=== PATIENT | female | born 1995 | race Hispanic/Latino ===

== ENCOUNTER 2024-09-16 19:50 | Emergency (ER) | payer SELFPAY ==
[~2024-09-16] VITALS: Ht 162.6 cm; Wt 119.3 kg
--- NOTE | 2024-09-16 20:18 | NUR ---
TRANSFERED CARE TO [facility] AT THIS TIME
--- NOTE | 2024-09-16 20:49 | ERN ---
General Chief Complaint: Toe Pain/Injury Stated Complaint: INFECTED TOE Time Seen by MD: 20:32 Source: patient History of Present Illness Initial Comments Patient is an obese 29-year-old female with no past medical history who comes in with a an infected left 2nd toe. She said she had an ingrown toenail there which she tried to dig out and then a few days later she noted it started get red and swollen. She squeezed it real hard and was able to express some purulent drainage. But since then it has increased in pain swelling and discoloration. The pain is radiating up her left calf and left thigh. She comes in for antibiotics. Allergies: Coded Allergies: No Known Allergies (Unverified Allergy, Unknown, 09/16/24) Past Medical History Past Medical History: No Pertinent History Medical History Other: obese Past Surgical History: Other Surgical History Other: RT OVARY Female( History) LMP: August 20, 2024 ROS Dictation Aside from HPI review of systems is negative. Patient states no chills no fevers. Physical Exam Extremities Comment Patient's left 2nd toe has severe venous discoloration in the distal phalanx. The toe itself is warm and extremely tender. The rest of the foot appears normal. MDM Most likely patient has an abscess in her toe. I will give her some IM antibiotics. I will also numb the toe with some lidocaine and try and drain an abscess. Please see procedure note for details. I was unable to release an abscess from the patient's distal phalanx. Although I do think creating the incision to relieve tension in the patient's tissues and with the antibiotics the infection will clear up nicely. I discharge the patient home with a prescription for Keflex. ED Course Orders Procedure Category Date Status Time Ceftriaxone 2gm Vial PHA 09/16/24 Complete (Rocephin 2gm Inj) 21:00 Lidocaine 1%-Epi PHA 09/16/24 Complete 1:100,000 (Lidocaine 21:00 Laceration Tray Set CPOE 09/16/24 Transmitted Up (Er) 20:32 Current Medications Medications (Trade) Dose Ordered Sig/Mica Route PRN Reason Start Time Stop Time Status Last Admin Dose Admin Ceftriaxone Sodium (Rocephin 2gm Inj) 2 gm ONCE ONCE IVPB 09/16/24 21:00 09/16/24 21:01 DC 09/16/24 21:15 Lidocaine/ Epinephrine (Lidocaine 1%-Epi 1:100,000) 20 ml ONCE ONCE IJ 09/16/24 21:00 09/16/24 21:01 DC 09/16/24 21:15 Vital Signs Date Time Temp Pulse Resp B/P (MAP) Pulse Ox O2 Delivery O2 Flow Rate FiO2 09/16/24 19:57 98.1 93 20 149/93 98 Room Air* 0 21 09/16/24 19:51 97.0 93 20 149/93 98 Room Air Procedure Dictation Patient's left 2nd toe was numbed with lidocaine doing injections at the base of the toe circumferentially. A small incision was made medially on the distal phalanx of the 2nd toe. There was no purulent drainage. The pulp of the distal phalanx was opened with a tele clamp and again no purulent drainage. Bleeding was stopped with pressure. The wound was cleaned with wound cleanser. The patient's nail and a 2nd toe was loose and I cut off the portion that was loose. The incision was left open. Incision and Drainage Incision and Drainage : Blade Size: 15 I & D Procedure: no sterile drapes applied DX & DISP Disposition: Discharge Departure Impression: Primary Impression: Infected abrasion of toe of left foot Condition: Stable Scripts Cephalexin Monohydrate (Keflex) 500 Mg Cap 500 MG PO QID for 7 Days, #28 CAP Prov: DEANDRE TOTH MD 09/16/24 Additional Instructions: Please return to the emergency room if your toe does not improve in the next few days. The incision and drainage and the antibiotics you received should clean of the infection. I would avoid soaking the toe in any water for the next several days. No swimming no saunas no soaking baths. It is okay to have water running over it so showers are okay. DEANDRE TOTH MD Sep 16, 2024 20:49
[2024-09-16] MEDS: cefTRIAXone 2GM VIAL IVPB ONE (21:15)
[2024-09-16] MEDS: LIDOCAINE 1%-EPI 1:100,000 20 ML VIAL IJ ONE (21:15)
[2024-09-16] MEDS ORDERED: CEPH500B PO (21:47)
[2024-09-16 21:56] VITALS: BP 141/93; PULSE 94; RESP 20; TEMP 98.3; O2SAT 98
== END 2024-09-16 22:02 | disposition home or self-care (01) ==
LOC: EDH 19:50
DX: S90.415A Abrasion, left lesser toe(s), initial encounter (principal); L08.9 Local infection of the skin and subcutaneous tissue, unspecified; E66.9 Obesity, unspecified; Z68.42 Body mass index [BMI] 45.0-49.9, adult; X58.XXXA Exposure to other specified factors, initial encounter; Y93.89 Activity, other specified; Y92.89 Other specified places as the place of occurrence of the external cause; Y99.8 Other external cause status
CPT/HCPCS: 99284; 96365; 10060; J0696